=== PATIENT | female | born 1955 | race Caucasian/White ===

== ENCOUNTER → 2016-10-21 | Outpatient (CLI) | payer OTHER | LOC: FIMAGING 12:30 | PROVIDERS: ATTEND Nurse Practitioner Family | DX: Z12.31 Encounter for screening mammogram for malignant neoplasm of breast (principal) | CPT/HCPCS: G0202 ==

== ENCOUNTER 2016-10-24 22:49 | Emergency (ER) | payer OTHER ==
[2016-10-24 22:54] VITALS: BP 161/94; PULSE 67; RESP 16; TEMP 98.2; O2SAT 96
--- NOTE | 2016-10-24 22:59 | EDPHY ---
H & P Stated Complaint: spider bites on right back/chest-itching HPI/ROS: HPI CHIEF COMPLAINT: Multiple insect bites. HISTORY OF PRESENT ILLNESS: This patient very pleasant 60-year-old female, denies any significant medical history and only take home replacement therapy, presents emergency room with multiple insect bites on her chest and arms. She states she noticed them yesterday initially had 1 on her arm that got very swollen, she was out on her patio in used a blanket was sitting out there she thinks that some type of insect bit her. She thinks it was a spider. There is no evidence of infection at this time. She has multiple bite jenkins throughout her chest and arms. There appeared to be welts. She has no trouble breathing, no trouble swallowing , no stridor, no wheezing. No chest pain or shortness of breath. She tells me she thinks the bug bites versus state after she laid out on her patio with a blanket that was out on the patio. She did not witness any bug actually biting her. Past Medical History: No significant medical history Past Surgical History: No recent surgical history Social History: Denies daily use drugs alcohol tobacco products Family History: Noncontributory ROS REVIEW OF SYSTEMS: A comprehensive 10 point review of systems is otherwise negative aside from elements mentioned in the history of present illness. Exam Constitutional triage nursing summary reviewed, vital signs reviewed, awake/ alert. Eyes normal conjunctivae and sclera, EOMI, PERRLA. HENT normal inspection, atraumatic, moist mucus membranes, no epistaxis, neck supple/ no meningismus, no raccoon eyes. Respiratory clear to auscultation bilaterally, normal breath sounds, no respiratory distress, no wheezing. Cardiovascular rate normal, regular rhythm, no murmur, no edema, distal pulses normal. Gastrointestinal soft, non-tender, no rebound, no guarding, normal bowel sounds, no distension, no pulsatile mass. Genitourinary no CVA tenderness. Musculoskeletal no midline vertebral tenderness, full range of motion, no calf swelling, no tenderness of extremities, no meningismus, good pulses, neurovascularly intact. Skin pink, warm, & dry, no rash, skin atraumatic. Neurologic awake, alert and oriented x 3, AAOx3, moves all 4 extremities equally, motor intact, sensory intact, CN II-XII intact, normal cerebellar, normal vision, normal speech. Psychiatric normal mood/affect. Heme/Lymph/Immune no lymphadenopathy. Differential Diagnosis: Includes but is not limited to in a particular order: Insect bites, allergic reaction, localized inflammation Medical Decision Making: Plan for this patient p.o. Benadryl here, p.o. prednisone. Cool compresses. She understands to watch her insect bites closely. They appear to be infected this includes worsening redness, worsening swelling, drainage, pus she should seek medical attention. Use Benadryl for itching. Cool compresses. Source: Patient - Personal History Current Tetanus/Diphtheria Vaccine: Unsure Current Tetanus Diphtheria and Acellular Pertussis (TDAP): Unsure - Medical/Surgical History Hx Asthma: No Hx Chronic Respiratory Disease: No Hx Diabetes: No Hx Cardiac Disease: No Hx Renal Disease: No Hx Cirrhosis: No Hx Alcoholism: No Hx HIV/AIDS: No Hx Splenectomy or Spleen Trauma: No Other PMH: nose bleeds, sinus surgery - Social History Smoking Status: Never smoked Constitutional: Initial Vital Signs Temperature (C) 36.8 C 10/24/16 22:51 Heart Rate 67 10/24/16 22:51 Respiratory Rate 16 10/24/16 22:51 Blood Pressure 161/94 H 10/24/16 22:51 O2 Sat (%) 96 10/24/16 22:51 O2 Delivery Mode Room Air Allergies/Adverse Reactions: Penicillins Allergy (Verified 10/24/16 22:54) Home Medications: Medication Instructions Recorded Estradiol [Climara] 07/17/13 Progesterone [First-Progesterone 07/17/13 Vgs 25] Departure - Departure Disposition: Home, Routine, Self-Care Clinical Impression: Insect bite Qualifiers: Encounter type: initial encounter Qualified Code(s): W57.XXXA - Bitten or stung by nonvenomous insect and other nonvenomous arthropods, initial encounter Condition: Good Instructions: Insect Bite or Sting (ED) Additional Instructions: 1. Use cool compresses to your bite wounds. 2. Take Benadryl for itching. 3. Return emergency room if you have any further symptoms questions or concerns about your bites. Referrals: ILIR ERAZO [Primary Care Provider] - As per Instructions
[2016-10-24] MEDS ORDERED: predniSONE 20 MG TAB PO ONE (23:02)
[2016-10-24] MEDS ORDERED: diphenhydrAMINE 25 MG CAP PO ONE (23:02)
== END 2016-10-24 23:17 | disposition home or self-care (01) ==
DX: S20.369A Insect bite (nonvenomous) of unspecified front wall of thorax, initial encounter (principal); W57.XXXA Bitten or stung by nonvenomous insect and other nonvenomous arthropods, initial encounter; Y99.8 Other external cause status

== ENCOUNTER → 2017-10-22 | Outpatient (CLI) | payer OTHER | LOC: FIMAGING 08:53 | PROVIDERS: ATTEND Physician Assistant Medical | DX: Z12.31 Encounter for screening mammogram for malignant neoplasm of breast (principal); Z13.820 Encounter for screening for osteoporosis; M85.89 Other specified disorders of bone density and structure, multiple sites; Z79.890 Hormone replacement therapy ==